=== PATIENT | male | born 1995 | race Caucasian/White ===

== ENCOUNTER 2022-04-16 12:24 | Outpatient (CLI) | payer OTHER | END 2022-04-16 12:25 | disposition home or self-care (01) | LOC: BICULT 12:24 | PROVIDERS: ATTEND Family Medicine | DX: N50.89 Other specified disorders of the male genital organs (principal); N50.3 Cyst of epididymis; N43.3 Hydrocele, unspecified | CPT/HCPCS: 76870; 93976 ==